=== PATIENT | female | born 1970 | race Caucasian/White ===

== ENCOUNTER 2018-05-02 17:07 | Inpatient (IN) ==
[2018-05-03] MEDS: Heparin Drip 25,000 UNIT/250 ML BAG IV.CONT PRN ×2 (00:45→10:04)
[2018-05-03] MEDS ORDERED: Temazepam 15 MG Capsule PO PRN (01:20)
[2018-05-03] MEDS ORDERED: Acetaminophen 325 MG Tablet PO PRN (01:20)
[2018-05-03] MEDS ORDERED: Bisacodyl 10 MG Supp RECTAL PRN (01:20)
[2018-05-03] MEDS ORDERED: predniSONE 5 MG Tablet PO PRN (03:12)
[2018-05-03] MEDS: Gabapentin 300 MG Capsule PO SCH ×4 (03:46→17:07)
[2018-05-03] MEDS: Baclofen 10 MG Tablet PO SCH ×4 (03:46→17:07)
[2018-05-03 03:55] LABS: INR 1.1 Ratio; Prothrombin Time 10.7 sec (9.8-11.6)
[2018-05-03 04:21] LABS: Activated Partial Thrombo Time 111.2 sec (24.3-30.1)
--- NOTE | 2018-05-03 05:25 | P.HP ---
History of Present Illness Service: [facility] Primary Care Physician: UNKNOWN Chief Complaint: Shortness of breath, syncope, chest pain History of Present Illness: 47-year-old female with a past medical history significant for fibromyalgia, chronic back pain, history of PE/DVT anticoagulated on Xarelto, sick sinus syndrome and rheumatoid arthritis presents to the emergency department for the evaluation of a syncopal episode, chest pain and shortness of breath. The patient reports that she has chronic chest pain but earlier yesterday began to feel acute Luke worsening left sided substernal chest pain that radiated to her left jaw. She reports this pain is now resolved. She states that she then became lightheaded and short of breath and lost consciousness while seated in her car. Her daughter drove her to the emergency department for further evaluation. Initial workup revealed a CTA that was concerning for possible pulmonary embolus despite anticoagulation. The patient was started on a heparin drip and transferred to [facility]. She states her chest pain is resolved. She complains of back and lower extremity pain. She denies any fever /chills. Shortness of breath is improved. No abdominal pain. No nausea/ vomiting/diarrhea. No fever/chills. No lateralizing signs/symptoms. Inpatient Certification: I certify that the inpatient services were ordered in accordance with Medicare regulations governing the order. This includes certification that hospital inpatient services are reasonable and necessary and in the case of services not specified as inpatient-only under 42 CFR 419.22(n), that they are appropriately provided as inpatient services in accordance to with the 2-midnight benchmark under 43 CFR 412.3(e) Estimated Total Length of Stay (Days): 2 Plans for Post Hospital Care: Not yet determined Review of Systems All other systems reviewed negative except as stated in [facility] - History History Provided By: Patient - Medical History Medical History: Medical History (Last Updated 05/02/18 @ 18:29 by Dalia Swanson) Anemia Anxiety Asthma DVT (deep venous thrombosis) Depression Fibromyalgia GERD (gastroesophageal reflux disease) History of cystocele History of rectocele Hx of endometriosis Hx of hysterectomy Pacemaker Pulmonary emboli Rheumatoid arthritis - Surgical History Surgical History: Surgical History (Last Updated 05/02/18 @ 17:37 by Dalia Swanson) Hx of cholecystectomy Hx of lithotripsy Hx of tonsillectomy - Tobacco History Second Hand Smoke Exposure: No Smoking Status: Never smoker - Alcohol History How Often Do You Have a Drink Containing Alcohol: Never - Substance Use History Substance History: No History of Abuse - Travel History Recent Travel in the [place] Within the Last 8 Weeks: No Recent Travel Out of the Country Within the Last 8 Weeks: No - Immunization History Hx Influenza Vaccine This Season: Yes Medications and Allergies Active Medications: Active Medications Acetaminophen (Tylenol) 650 mg PO Q4H PRN PRN Reason: Temp > 100.4 Al Hydroxide/Mg Hydroxide (Milk Of Magnesia Liq) 30 ml PO Q12H PRN PRN Reason: Mild Constipation Alprazolam (Xanax) 1 mg PO BID PRN PRN Reason: Anxiety Baclofen (Lioresal) 10 mg PO TID [facility] Last Admin: 05/03/18 03:46 Dose: 10 mg Bisacodyl (Dulcolax Supp) 10 mg RECTAL DAILY PRN PRN Reason: SEVERE CONSITIPATION Famotidine (Pepcid) 20 mg PO BID [facility] Gabapentin (Neurontin) 300 mg PO TID [facility] Last Admin: 05/03/18 03:46 Dose: 300 mg Hydroxychloroquine Sulfate (Plaquenil) 200 mg PO BID [facility] Heparin Sodium/Dextrose (Heparin/D5w 25,000 U/250 Ml) 25,000 unit in 250 mls @ 18 mls/hr IV.CONT TITRATE PRN; Protocol PRN Reason: Per Protocol Last Admin: 05/03/18 00:45 Dose: 1,800 units/hr, 18 mls/hr Lactulose (Lactulose Liq) 30 ml PO DAILY PRN PRN Reason: SEVERE CONSITIPATION Ondansetron HCl (Zofran Inj) 4 mg IV.PUSH Q6H PRN PRN Reason: NAUSEA OR VOMITING Oxycodone HCl (Roxicodone) 10 mg PO Q6H PRN PRN Reason: PAIN SCALE 1 TO 10 Last Admin: 05/03/18 03:46 Dose: 10 mg Pantoprazole Sodium (Protonix) 40 mg PO DAILY [facility] (Fluticasone- Salmeterol [Advair Hfa] 115/21 0 each INH BID [facility] Prednisone (Deltasone) 5 mg PO DAILY PRN PRN Reason: flair up of RA Senna/Docusate Sodium (Tessie-Colace) 1 tab PO BID [facility] Sennosides (Senokot) 17.2 mg PO Q12H PRN PRN Reason: Moderate Constipation Sertraline HCl (Zoloft) 50 mg PO DAILY [facility] Temazepam (Restoril) 15 mg PO HS PRN PRN Reason: INSOMNIA Allergies Allergy/AdvReac Type Severity Reaction Status Date / Time latex Allergy Unknown Anaphylaxis Verified 05/02/18 17:10 shellfish derived Allergy Unknown Anaphylaxis Verified 05/02/18 17:10 Home Medications Medication Instructions Recorded Confirmed Type alprazolam [Xanax] 1 mg PO BID PRN 05/02/18 05/03/18 History baclofen 10 mg PO TID 05/02/18 05/03/18 History diclofenac sodium [Voltaren] 2 g TOPICAL QID 05/02/18 05/03/18 History epinephrine [EpiPen] 0.3 mg IM Q15M PRN 05/02/18 05/03/18 History famotidine 20 mg PO BID 05/02/18 05/03/18 History fluticasone-salmeterol [Advair HFA] 2 puff INHALATION BID 05/02/18 05/03/18 History gabapentin 300 mg PO TID 05/02/18 05/03/18 History hydroxychloroquine [Plaquenil] 200 mg PO BID 05/02/18 05/03/18 History levalbuterol HCl [Xopenex] 1.25 mg INHALATION Q4-6H PRN 05/02/18 05/03/18 History oxycodone 10 mg PO Q4-6H PRN 05/02/18 05/03/18 History pantoprazole 40 mg PO DAILY 05/02/18 05/03/18 History prednisone 5 mg PO DAILY PRN 05/02/18 05/03/18 History rivaroxaban [Xarelto] 10 mg PO DAILY 05/02/18 05/03/18 History sertraline 50 mg PO DAILY 05/02/18 05/03/18 History Exam Vital signs: Intake & Output 05/02/18 05/02/18 05/03/18 06:59 18:59 06:59 Weight 115.7 kg Other: Weight On Admission 115.7 kg Narrative: Gen.: No acute distress Head: Normocephalic. Atraumatic. EENT: Pupils equal round and reactive to light. Nose without drainage. Airway intact. Throat without injection. Cardiovascular: Regular rate and rhythm. No murmurs, rubs or gallops. Respiratory: Lungs clear to auscultation bilaterally. No wheezes or rhonchi. Abdomen: Soft, nontender, nondistended. No peritoneal signs. Musculoskeletal: No gross deformities. No edema. Skin: No obvious rashes or erythema. Neuro: Sensory and motor grossly intact. Cranial nerves II through XII grossly intact. Psych: Appropriate mood and affect Results - Labs Labs: Laboratory Results - last 24 hr 05/03/18 05/03/18 05/03/18 03:25 03:25 04:36 PT 10.7 INR 1.1 APTT 111.2 H* D 106.0 H* Troponin I Less than 0.02 L Caprini VTE Risk Assessment Caprini VTE Risk Assessment: Moderate/High Risk (score >= 2) Caprini Risk Assessment Model: Point Value = 1 Point Value = 2 Point Value = 3 Point Value = 5 Age 41-60 Minor surgery BMI > 25 kg/m2 Swollen legs Varicose veins or History of unexplained or recurrent spontaneous Oral contraceptives or hormone replacement Sepsis (< 1 month) Serious lung disease, including pneumonia (< 1 month) Abnormal pulmonary function Acute myocardial infarction Congestive heart failure (< 1 month) History of inflammatory bowel disease Medical patient at bed rest Age 61-74 Arthroscopic surgery Major open surgery (> 45 min) Laparoscopic surgery (> 45 min) Malignancy Confined to bed (> 72 hours) Immobilizing plaster cast Central venous access Age >= 75 History of VTE Family history of VTE Factor V Leiden Prothrombin [id number] Lupus anticoagulant Anticardiolipin antibodies Elevated serum homocysteine Heparin-induced thrombocytopenia Other congenital or acquired thrombophilia Stroke (< 1 month) Elective arthroplasty Hip, pelvis, or leg fracture Acute spinal cord injury (< 1 month) Prophylaxis Regimen: Total Risk Factor Score Risk Level Prophylaxis Regimen 0-1 Low Early ambulation 2 Moderate Order ONE of the following: *Sequential Compression Device (SCD) *Heparin 5000 units SQ BID 3-4 Higher Order ONE of the following medications: *Heparin 5000 units SQ TID *Enoxaparin/Lovenox 40 mg SQ daily (WT < 150 kg, CrCl > 30 mL/min) *Enoxaparin/Lovenox 30 mg SQ daily (WT < 150 kg, CrCl > 10-29 mL/min) *Enoxaparin/Lovenox 30 mg SQ BID (WT < 150 kg, CrCl > 30 mL/min) AND/OR *Sequential Compression Device (SCD) 5 or more Highest Order ONE of the following medications: *Heparin 5000 units SQ TID (Preferred with Epidurals) *Enoxaparin/Lovenox 40 mg SQ daily (WT < 150 kg, CrCl > 30 mL/min) *Enoxaparin/Lovenox 30 mg SQ daily (WT < 150 kg, CrCl > 10-29 mL/min) *Enoxaparin/Lovenox 30 mg SQ BID (WT < 150 kg, CrCl > 30 mL/min) AND *Sequential Compression Device (SCD) Assessment and Plan - Plan Assessment/plan: 1. Shortness of breath Chest CTA showed suspected pulmonary embolus seen at the pulmonary artery supplying the anterior aspect of the left lower lobe -patient anticoagulated on Xarelto for previous DVT/PE. Hematology consulted to evaluate possible PE in the setting of anticoagulation. Heparin bolus and drip. 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 Cardiology, pulmonology consulted for further evaluation. Echo pending 2. Chest pain ACS rule out negative Resolved 3. Sick sinus syndrome Status post pacemaker placement 4. Fibromyalgia/chronic back pain/rheumatoid arthritis Continue home pain medications and muscle relaxers Patient has current prescriptions according to [employer] database FEN Regular diet Electrolytes: Monitor and replete as needed Heparin drip
[2018-05-03 07:33] LABS: Hematocrit 41.1 % (35.0-46.0); Hemoglobin 13.3 gm/dL (11.6-15.3); Mean Corpuscular HGB Conc 32.3 % (32.0-36.0); Mean Corpuscular Hemoglobin 23.7 pg (27.0-34.0); Mean Corpuscular Volume 73.4 fL (80.0-100.0); Mean Platelet Volume 10.4 fL (7.0-11.0); Platelet Count 220 th/mm3 (150-450); Red Cell Distribution Width 19.7 % (11.6-17.2); White Blood Count 7.3 th/mm3 (4.0-11.0)
[2018-05-03] MEDS: Famotidine 20 MG Tablet PO SCH ×2 (09:57→21:45)
[2018-05-03] MEDS: Sertraline 50 MG Tablet PO SCH (09:57)
[2018-05-03] MEDS: Senna/Docusate Sodium 8.6/50 MG Tablet PO SCH ×2 (09:57→21:46)
[2018-05-03] MEDS: Hydroxychloroquine 200 MG Tablet PO SCH ×2 (09:57→21:46)
--- NOTE | 2018-05-03 12:00 | P.PNIM ---
Subjective Interval history: in no acute distress. denies sob or chest pain. has some generalized body ache which she relates to her fibromyalgia. Physical Exam Vital signs: Vital Signs 05/03/18 00:00 05/03/18 04:00 05/03/18 06:00 Temperature 97.9 F 97.5 F L Pulse Rate 66 80 Respiratory Rate 18 Blood Pressure 124/63 112/57 L Pulse Oximetry 94 L 97 Intake & Output 05/02/18 05/03/18 05/03/18 18:59 06:59 18:59 Intake Total 120 / 120 250 / 250 Balance 120 / 120 250 / 250 Weight 115.7 kg Intake: IV 250 / 250 Heparin/D5W 25,000 U/250 mL 25, 250 / 250 000 unit In 250 ml @ 1,800 UNITS/HR 18 mls/hr IV.CONT TITRATE PRN Rx#:[id number] Oral 120 / 120 Other: # Voids 2 Weight On Admission 115.7 kg - Constitutional no acute distress - Routine Respiratory Exam Present: CTA bilaterally - Routine Cardiovascular Exam Present: RRR - Routine Abdominal Exam Present: soft - Routine Extremities Exam Comments: no pedal edema. - Routine Neurological Exam Present: alert, oriented X3 Results - Labs CBC & Chem 7: 05/03/18 06:39 Laboratory Results - last 24 hr 05/03/18 05/03/18 05/03/18 03:25 03:25 04:36 WBC RBC Hgb Hct MCV MCH MCHC RDW Plt Count MPV PT 10.7 INR 1.1 APTT 111.2 H* D 106.0 H* Troponin I Less than 0.02 L 05/03/18 05/03/18 06:39 10:55 WBC 7.3 RBC 5.60 H Hgb 13.3 Hct 41.1 MCV 73.4 L MCH 23.7 L MCHC 32.3 RDW 19.7 H Plt Count 220 MPV 10.4 PT INR APTT 70.0 H D Troponin I Assessment and Plan - Plan 1. Shortness of breath Chest CTA showed suspected pulmonary embolus seen at the pulmonary artery supplying the anterior aspect of the left lower lobe -patient anticoagulated on Xarelto for previous DVT/PE. Hematology consulted to evaluate possible PE in the setting of anticoagulation. on Heparin drip. 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 Cardiology, pulmonology consulted for further evaluation. Echo pending 2. Chest pain ACS rule out negative Resolved 3. Sick sinus syndrome Status post pacemaker placement 4. Fibromyalgia/chronic back pain/rheumatoid arthritis Continue home pain medications and muscle relaxers Patient has current prescriptions according to [email or web address] database
--- NOTE | 2018-05-03 16:41 | MB ---
cc: Judith Roper MD DATE: 05/03/2018 HISTORY OF PRESENT ILLNESS: Ms. Pacheco is a 47-year-old white female who has a history of a DVT and pulmonary embolism about 5 years ago and had been followed by a public relations studies director in [place]. She had been on Xarelto and was fine. On the day of admission, she had a near-syncopal episode while driving her car through a takeout window at a food shop. Daughter took over the driving, drove her to the [facility] and she had a CT scan there. That indicated a suspected pulmonary embolism seen in the anterior aspect of the left lower lobe while the rest of the pulmonary circulation appeared normal. No infiltrates or effusions were noted. Because of this, it was suspected that the near-syncopal episode was due to recurrent pulmonary embolism, although she had been on Xarelto, as I said, for several years with no problems. There was no preceding chest pain or shortness of breath. She had no increased swelling in her legs or pain in her legs. She had no immobility, nothing to really predispose her other than the previous pulmonary embolism. She does have a history of neurocardiogenic syncope and in fact several years ago had a pacemaker placed for that along with sick sinus syndrome. She also had an episode of atrial fibrillation in October of this year. Blood pressure since her admission here has been anywhere from 100/50-120/60 and her pulse rate has been in the 60-80 range. She has had no additional symptoms here in the hospital. In light of the concern and suspicion that she may have embolized on Xarelto, she was switched to heparin. Hematology has been consulted to assist in that regard as well. She also has a history of asthma, uses an Advair and occasional albuterol inhaler. Asthma has been very stable. No recent wheezing, cough or congestion. Nothing to suggest a recent URI. ADDITIONAL PAST MEDICAL HISTORY: Fibromyalgia, depression, GERD, history of cystocele and rectocele, endometriosis. She has had a hysterectomy, the pacemaker that I noted and she also has rheumatoid disease with her fibromyalgia and takes hydroxychloroquine with occasional prednisone when she flares. PAST SURGICAL HISTORY: She has had a previous cholecystectomy, lithotripsy and tonsillectomy. SOCIAL HISTORY: , living with her and 2 children in their 20's. They have dogs at home. They were on vacation 2 weeks ago and actually she felt fine. They were in [place]; that is the only recent travel. No significant alcohol use. No illicit drug use. Nonsmoker. REVIEW OF SYSTEMS: Other than that noted above, no recent headache. No chest pain, no progressive dyspnea, no orthopnea or PND. No vomiting. PHYSICAL EXAMINATION: GENERAL: Obese, white female, comfortable at rest. O2 saturation 98-100% on room air. VITAL SIGNS: Afebrile. Blood pressure 112/60, pulse is 70 and regular, respirations 18. HEENT: Sclerae are anicteric. NECK: Neck veins are flat. CHEST: Entirely clear without wheezes or rales. HEART: Regular rhythm. No harsh murmur. No audible S3. ABDOMEN: Obese, but soft. EXTREMITIES: No calf tenderness. No peripheral edema or cyanosis. LABORATORY DATA: White count 7300, hemoglobin 13, platelets normal. DISCUSSION: Ms. Pacheco presents yesterday after what she describes as a near-syncopal episode. Her daughter apparently confirmed that she was "zoned out", although there was no actual loss of consciousness. The CT scan reveals really a minimal abnormality at that left base and without old films it is not possible to say whether that is old or new, but it is a relatively minor defect and a little unlikely to have caused presyncopal symptoms. Cardiology has been consulted in light of the prior history of neurocardiogenic syncope and arrhythmia and I am wondering if that is not more likely to have been the cause of her symptoms. An echocardiogram would help to determine whether or not she has any pulmonary hypertension. I think you could safely return her to the [facility]. Would await the impression of Hematology and some initial cardiology evaluation, but again I think the small defect on the CT scan of her chest seems a little unlikely in and of itself to have caused these symptoms. We will monitor her at least the next 24 hours for recurrent symptoms, see what her echocardiogram reveals. Further diagnostic and/or therapeutic intervention will depend on her ongoing clinical course and the results of these initial studies. R. MD AVNI Ledezma/JANNETTE , 04:10 PM , 04:39 PM
--- NOTE | 2018-05-03 17:05 | ECHRPT ---
Indication: CPHD CONCLUSIONS The left ventricular systolic function is normal with an estimated ejection fraction in the range of 60-65%. Normal left ventricular size. Wall thickness is normal. No regional wall motion abnormalities are present. A pacemaker wire is noted. The pulmonary valve is not well visualized. BP: / HR: Rhythm: Sinus MEASUREMENTS (Male / Female) Normal Values Technical Quality:Excellent 2D ECHO LV Diastolic Diameter PLAX 4.5 cm 4.2 - 5.9 / 3.9 - 5.3 cm LV Systolic Diameter PLAX 2.6 cm IVS Diastolic Thickness 1.1 cm 0.6 - 1.0 / 0.6 - 0.9 cm LVPW Diastolic Thickness 1.1 cm 0.6 - 1.0 / 0.6 - 0.9 cm LV Relative Wall Thickness 0.5 RV Internal Dim ED PLAX 2.5 cm LVOT Diameter 2.1 cm LA Systolic Diameter LX 3.0 cm 3.0 - 4.0 / 2.7 - 3.8 cm LV Ejection Fraction MOD 4C 62.4 % LV Ejection Fraction 4C AL 64.3 % M-MODE Aortic Root Diameter MM 2.1 cm LA Systolic Diameter MM 3.5 cm LA Ao Ratio MM 1.7 AV Cusp Separation MM 2.1 cm DOPPLER AV Peak Velocity 101.5 cm/s AV Peak Gradient 4.1 mmHg LVOT Peak Velocity 93.3 cm/s LVOT Peak Gradient 3.5 mmHg AV Area Cont Eq pk 3.2 cm MV Area PHT 3.8 cm Mitral E Point Velocity 54.8 cm/s Mitral A Point Velocity 47.9 cm/s Mitral E to A Ratio 1.1 LV E' Lateral Velocity 7.7 cm/s Mitral E to LV E' Lateral Ratio 7.1 LV E' Septal Velocity 6.7 cm/s Mitral E to LV E' Septal Ratio 8.1 PV Peak Velocity 78.7 cm/s PV Peak Gradient 2.5 mmHg FINDINGS LEFT VENTRICLE The left ventricular systolic function is normal with an estimated ejection fraction in the range of 60-65%. Normal left ventricular size. Wall thickness is normal. No regional wall motion abnormalities are present. RIGHT VENTRICLE A pacemaker wire is noted. LEFT ATRIUM The left atrial size is normal. RIGHT ATRIUM The right atrial size is normal. ATRIAL SEPTUM Normal atrial septal thickness without atrial level shunting by limited color doppler interrogation. AORTA The aortic root and proximal ascending aorta are normal in size on limited imaging. MITRAL VALVE Structurally normal mitral valve. No mitral valve stenosis or regurgitation. AORTIC VALVE Trileaflet aortic valve. No aortic valve stenosis or regurgitation. TRICUSPID VALVE Structurally normal tricuspid valve. No tricuspid valve stenosis or regurgitation. PULMONARY VALVE The pulmonary valve is not well visualized. VESSELS The inferior vena cava is normal in size. PERICARDIUM No pericardial effusion. Freedom Chavez MD, FACC (Electronically Signed) Final Date:03 May 2018 17:03
--- NOTE | 2018-05-03 19:30 | MB ---
cc: Samria Chilel MD DATE: 05/03/2018 CHIEF COMPLAINT: 1. Chest pain. 2. Syncope. 3. Shortness of breath. HISTORY OF PRESENT ILLNESS: Ms. Pacheco is a 47-year-old lady with a history of fibromyalgia syncope, sick sinus syndrome, mixed connective tissue disease, chronic lower back pain, sciatica, asthma, obesity, who presented to the emergency department with a 2-day history of shortness of breath. She presented to the emergency department on 05/03/2018. She also reported syncopal episode and chest pain. She reports that this chest pain is different from her chronic chest pain. In the Emergency Department, her chest pain had resolved. She had an echocardiogram, which showed left ventricular systolic function normal, with an estimated ejection fraction in the range of 60-65%, normal left ventricular size, wall thickness is normal. No regional wall motion abnormalities are present. Chest CTA with decreased density within the pulmonary artery supplying the anterior aspect of the left lower lobe. The more posterior branch supplying the posterior aspect of the left lower lobe at the same level was clearly more opacified. This suggests there is likely a PE in this pulmonary artery supplying the anterior aspect of the left lower lobe. No other possible pulmonary embolus is seen. The patient reports that she has a history of right lower extremity clot in 2012. She reports that her clot at that time was unprovoked and she has been on Xarelto. She had previously followed with an oncologist in the [place] area. However, her oncologist had recently taken a job in the [place] and she has not seen a bag filler machine operator in some time. She has also been seen by the pulmonary medicine team and cardiology consult is pending, especially given syncope. Laboratory studies with white blood cell count 7.3, hemoglobin 13.3, platelet count is 220,000. She is currently therapeutic on a heparin drip. PAST MEDICAL HISTORY: Fibromyalgia, mixed connective tissue disease, syncope, sick sinus syndrome, chronic lower back pain, sciatica, acid reflux, nephrolithiasis, endometriosis. PAST SURGICAL HISTORY: Cholecystectomy, lithotripsy, tonsillectomy, hysterectomy. FAMILY HISTORY: No family history of clot. Sister with a history of polycythemia. SOCIAL HISTORY: Denies tobacco, alcohol, illegal drug use. She is with a good support system. REVIEW OF SYSTEMS: As above in the HPI. All other review of systems negative. PHYSICAL EXAMINATION: GENERAL: Obese lady in no distress, resting comfortably in bed. HEAD: Normocephalic, atraumatic. EYES: PERRLA, EOMI. No scleral icterus. NECK: Supple with no lymphadenopathy. CARDIOVASCULAR: Regular rate and rhythm. No murmurs. RESPIRATORY: Clear to auscultation bilaterally. ABDOMEN: Soft, nontender, nondistended. Bowel sounds present. Protuberant abdomen. EXTREMITIES: With no edema. NEUROLOGIC: Grossly nonfocal. PSYCHIATRIC: Appropriate mood and affect. ASSESSMENT AND PLAN: Possible pulmonary embolus seen on CTA. No prior comparisons available. We will review imaging studies with radiologist. We will also check D-dimer and ultrasound of the leg. If D-dimer is low, ultrasound of the leg is negative and radiologist review, probable area of clot is unimpressive. We will discuss risks versus benefits of returning patient to Xarelto. If there is evidence of having an active clot, would plan to switch the patient to warfarin therapy. The patient reports that she had been taking the Xarelto scheduled on time with food every day. She reports that she had a back procedure approximately 3 months ago and was off Xarelto for approximately 3 days and then she resumed. The patient also has a history of active rheumatologic disease for which she takes prednisone and Plaquenil. Do feel that it would be fair to work her up for an underlying antiphospholipid antibody syndrome and will order these tests. We will also check hepatic function panel. Inpatient hematology service will continue to follow. MD FLORES Gerard/LAURA , 06:47 PM , 07:28 PM MARYAM
--- NOTE | 2018-05-03 22:20 | MB ---
cc: Wojciech Ruiz Vincent G DO DATE: 05/03/2018 REASON FOR CONSULTATION: Chest pain, shortness of breath, syncope. HISTORY OF PRESENT ILLNESS: Kylah Yao is a pleasant 47-year-old female who presented to [facility] due to a syncopal episode, chest pain and shortness of breath. The patient is known to see Dr. Tolentino in [place], [place]. She states that she was driving through a drive-through and had to stop and apparently had the syncopal episode in the car. It is unsure at this time if she actually lost consciousness. Her daughter drove her to [facility] where she had a CAT scan and there was concern for a suspected pulmonary embolus and so she was transferred to [facility] and started on a heparin drip. She also states that she has chronic chest pain due to compressions done at the time of her pacemaker placement. She feels that these are muscle spasms and she frequently gets these. Chest pain was somewhat different at the time and she mentioned some pain along the jaw area, although she is unsure if this is actually associated with it. She also mentioned that she feels that she is short of breath chronically. She does have a history of multiple syncopal episodes, which she states has gotten somewhat better. She was told by Dr. Tolentino that during these episodes they were not felt to be cardiac, but more likely neurologic. In seeing her, she is currently stable with no chest pain, shortness of breath or palpitations. PAST MEDICAL HISTORY: 1. Syncopal episodes. 2. Anemia. 3. Anxiety. 4. Asthma. 5. Deep venous thrombosis. 6. Depression. 7. Fibromyalgia. 8. Gastroesophageal reflux disease. 9. Pulmonary embolus. 10. Rheumatoid arthritis. 11. Sick sinus syndrome. 12. Chronic low back pain. PAST SURGICAL HISTORY: 1. [facility] pacemaker placed due to her syncopal episodes as well as sick sinus syndrome. 2. Cholecystectomy. 3. Lithotripsy. 4. Tonsillectomy. 5. Hysterectomy. ALLERGIES: 1. LATEX. 2. SHELLFISH. MEDICATIONS: 1. Xarelto 10 mg daily. 2. Gabapentin 300 mg t.i.d. 3. Sertraline 50 mg daily. 4. Oxycodone 10 mg every 4-6 hours as needed for pain. 5. Protonix 40 mg daily. 6. Prednisone 5 mg daily as needed. 7. Xopenex 1.25 mg every 4-6 hours as needed. 8. Advair 2 puffs b.i.d. 9. Baclofen 10 mg t.i.d. 10. Pepcid 20 mg b.i.d. 11. Voltaren gel q.i.d. 12. Plaquenil 200 mg b.i.d. 13. Xanax 1 mg b.i.d. as needed for anxiety. FAMILY HISTORY: Denies premature coronary artery disease or sudden cardiac within the family. SOCIAL HISTORY: Denies tobacco, alcohol or drug abuse. REVIEW OF SYSTEMS: Fourteen systems were reviewed including osteopathic, positives and negatives as above, otherwise negative. PHYSICAL EXAMINATION: VITAL SIGNS: Temperature 97.6, heart rate 64, blood pressure 103/51, respirations 20, pulse oximetry 100% on room air. GENERAL: The patient appears well, in no acute distress. Alert, awake and oriented x3. Extraocular movements intact. Mucous membranes moist. NECK: Supple. No JVD at 45 degrees. No carotid bruits heard bilaterally. Carotid upstroke is brisk in nature. HEART: Regular rate and rhythm. Positive first and second heart sounds with no noted murmurs, gallops or rubs. LUNGS: Clear to auscultation bilaterally. No wheezes, rales or rhonchi. ABDOMEN: Soft, nontender, nondistended. No organomegaly noted. EXTREMITIES: Show no clubbing, cyanosis or edema. Femoral and distal pulses are intact bilaterally. SKIN: Warm, dry and intact. OSTEOPATHIC: Mild lordosis. No kyphoscoliosis or paraspinal tender points. LABORATORY DATA: Hemoglobin 13.3, hematocrit 41.1, platelets 220. Potassium 3.9, BUN 13, creatinine 1.50. Troponin less than 0.02. BNP 13. CARDIOLOGY STUDIES: Electrocardiogram (05/02/2018 at 1719): Sinus rhythm with no acute ST-T wave changes. IMPRESSION: 1. Syncopal episode, although difficult to determine if she lost consciousness as the patient is an overall poor historian. 2. History of neurocardiogenic syncope. 3. Chest pain, atypical for coronary insufficiency. 4. Shortness of breath, which she states is chronic in nature. 5. Suspected pulmonary embolus on CTA 6. Sick sinus syndrome, status post pacemaker placement. 6. Fibromyalgia. 7. Chronic back pain. 8. Rheumatoid arthritis. RECOMMENDATIONS: 1. Ms. Pacheco presented with chest pain, shortness of breath and no syncopal episode. All of these are relatively chronic for her, although her symptoms are somewhat different than her baseline. 2. There is concern for a possible pulmonary embolus and she is being evaluated from Pulmonology as well as Hematology for this. Overall, if she did have a pulmonary embolus, this definitely could be a cause for her triad of symptoms. 3. We will defer anticoagulation further to hematology, as she was currently on Xarelto for previous deep venous thrombosis and pulmonary embolism. 4. We will attempt to call her qa lead in [place], [place] to discuss his previous workup of her. I have asked [facility] to interrogate her pacemaker due to the syncopal episode and no arrhythmias were noted. 5. We will check a 2-Dimensional echocardiogram to look at her overall left ventricular function, cardiac structure and possible valvulopathies. 6. Further recommendations will be made based on the hospital course. Thank you for allowing me to see Kylah Pacheco. If there are any questions, please do not hesitate to call. DO ALEXANDRIA CaponeP/ , 09:36 PM , 10:19 PM
[2018-05-04] MEDS: Heparin Drip 25,000 UNIT/250 ML BAG IV.CONT PRN ×2 (03:53→21:42)
[2018-05-04] MEDS: Famotidine 20 MG Tablet PO SCH ×2 (08:48→21:46)
[2018-05-04] MEDS: Hydroxychloroquine 200 MG Tablet PO SCH ×2 (08:48→21:46)
[2018-05-04] MEDS: Gabapentin 300 MG Capsule PO SCH ×3 (08:48→18:09)
[2018-05-04] MEDS: Sertraline 50 MG Tablet PO SCH (08:48)
[2018-05-04] MEDS: Baclofen 10 MG Tablet PO SCH ×3 (08:48→18:09)
[2018-05-04] MEDS: Senna/Docusate Sodium 8.6/50 MG Tablet PO SCH ×2 (08:48→21:46)
--- NOTE | 2018-05-04 08:51 | US ---
EXAM DATE: 05/04/2018 8:35 AM EDT AGE/SEX: 47 years / Female INDICATIONS: Bilateral leg swelling. CLINICAL DATA: This is the patient's initial encounter. Patient reports that signs and symptoms have been present for 1 week and indicates a pain score of 10/10. MEDICAL/SURGICAL HISTORY: Gastroesophageal reflux disease. Rheumatoid arthritis. Anemia. Anxie ty. Asthma. Depression. Deep vein thrombosis. Fibromyalgia. Cystocele. Rectocele. Endometriosis. Pulm onary embolism. Hysterectomy. Pacemaker. Cholecystectomy. Lithotripsy. Tonsillectomy. COMPARISON: No prior exams available for comparison. TECHNIQUE: Venous ultrasound of both lower extremities was performed from the inguinal ligament to t he proximal calf. Real-time, color Doppler and spectral tracing, compression and augmentation techni ques were used. FINDINGS: Right Leg: Normal compression of the deep venous system from the inguinal region to the proximal braden f. No echogenic clot is seen. Normal response of the venous system to augmentation and respiration. Left Leg: Normal compression of the deep venous system from the inguinal region to the proximal calf . No echogenic clot is seen. Normal response of the venous system to augmentation and respiration. Other: None. CONCLUSION: The study is negative for bilateral lower extremity deep venous thrombosis. Electronically signed by: Chester Hess MD 05/04/2018 8:50 AM EDT
[2018-05-04 09:20] LABS: Calcium 9.4 mg/dL (8.5-10.1); Carbon Dioxide 24.4 meq/L (21.0-32.0); Potassium 4.1 meq/L (3.5-5.1)
[2018-05-04 09:32] LABS: Baso % (Auto) 0.3 % (0.0-2.0); Eos # (Auto) 0.2 th/mm3 (0.0-0.4); Eos % (Auto) 2.6 % (0.0-4.0); Hematocrit 40.1 % (35.0-46.0); Hemoglobin 12.8 gm/dL (11.6-15.3); Lymph # (Auto) 2.4 th/mm3 (1.0-4.8); Lymph % (Auto) 39.2 % (9.0-44.0); Mean Corpuscular HGB Conc 31.9 % (32.0-36.0); Mean Corpuscular Hemoglobin 23.3 pg (27.0-34.0); Mean Corpuscular Volume 72.9 fL (80.0-100.0); Mean Platelet Volume 10.3 fL (7.0-11.0); Mono # (Auto) 0.4 th/mm3 (0.0-0.9); Mono % (Auto) 7.1 % (0.0-8.0); Neut # (Auto) 3.1 th/mm3 (1.8-7.7); Neut % (Auto) 50.8 % (16.0-70.0); Platelet Count 205 th/mm3 (150-450); Red Cell Distribution Width 20.1 % (11.6-17.2)
--- NOTE | 2018-05-04 12:53 | P.PNIM ---
Subjective Interval history: in no acute distress. has some on and off muscle spasms. no sob or chest pain. otherwise no other complaints. Physical Exam Vital signs: Vital Signs 05/03/18 16:00 05/03/18 20:00 05/03/18 22:20 Temperature 97.1 F L 96.0 F L Pulse Rate 56 L 60 Respiratory Rate 20 14 17 Blood Pressure 99/54 L 118/69 Pulse Oximetry 98 96 05/04/18 00:00 05/04/18 04:00 05/04/18 08:00 Temperature 97.8 F 98.8 F 97.8 F Pulse Rate 95 H 58 L 85 Respiratory Rate 16 14 20 Blood Pressure 120/65 109/56 L 104/60 Pulse Oximetry 95 98 96 Intake & Output 05/03/18 05/04/18 05/04/18 18:59 06:59 18:59 Intake Total 250 / 250 250 / 250 Balance 250 / 250 250 / 250 Intake: IV 250 / 250 250 / 250 Heparin/D5W 25,000 U/250 mL 25, 250 / 250 250 / 250 000 unit In 250 ml @ 1,800 UNITS/HR 18 mls/hr IV.CONT TITRATE PRN Rx#:[id number] - Constitutional no acute distress - Routine Respiratory Exam Present: CTA bilaterally - Routine Cardiovascular Exam Present: RRR - Routine Abdominal Exam Present: soft - Routine Extremities Exam Comments: no pedal edema. - Routine Neurological Exam Present: alert, oriented X3 Results - Labs CBC & Chem 7: 05/04/18 08:16 05/04/18 08:16 Laboratory Results - last 24 hr 05/03/18 05/03/18 05/03/18 16:35 16:35 22:27 WBC RBC Hgb Hct MCV MCH MCHC RDW Plt Count MPV Neut % (Auto) Lymph % (Auto) [place] % (Auto) Eos % (Auto) Baso % (Auto) Neut # (Auto) Lymph # (Auto) [place] # (Auto) Eos # (Auto) Baso # (Auto) WBC Differential Differential Comment Hematology Comments APTT 63.9 H 72.5 H D-Dimer Quant (PE/DVT) 0.58 H Sodium Potassium Chloride Carbon Dioxide Anion Gap BUN Creatinine Estimated GFR Random Glucose Calcium 05/04/18 05/04/18 05/04/18 08:16 08:16 08:16 WBC 6.0 RBC 5.50 H Hgb 12.8 Hct 40.1 MCV 72.9 L MCH 23.3 L MCHC 31.9 L RDW 20.1 H Plt Count 205 MPV 10.3 Neut % (Auto) 50.8 Lymph % (Auto) 39.2 [place] % (Auto) 7.1 Eos % (Auto) 2.6 Baso % (Auto) 0.3 Neut # (Auto) 3.1 Lymph # (Auto) 2.4 [place] # (Auto) 0.4 Eos # (Auto) 0.2 Baso # (Auto) 0.0 WBC Differential . Differential Comment Auto diff final Hematology Comments APTT 73.0 H D-Dimer Quant (PE/DVT) Sodium 139 Potassium 4.1 Chloride 105 Carbon Dioxide 24.4 Anion Gap 10 BUN 13 Creatinine 0.93 Estimated GFR 65 L Random Glucose 103 Calcium 9.4 - Imaging Impressions Venous Doppler Study 05/04/18 00:00 CONCLUSION: The study is negative for bilateral lower extremity deep venous thrombosis. Assessment and Plan - Plan 1. Shortness of breath Chest CTA showed suspected pulmonary embolus seen at the pulmonary artery supplying the anterior aspect of the left lower lobe -patient anticoagulated on Xarelto for previous DVT/PE. 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 pulmonary and hematology consults appreciated. 2. Chest pain Resolved cardiology consult appreciated. for stress test tomorrow. 3. Sick sinus syndrome Status post pacemaker placement 4. Fibromyalgia/chronic back pain/rheumatoid arthritis Continue home pain medications and muscle relaxers Patient has current prescriptions according to [email or web address] database Discharge Planning: when cleared by consultants.
--- NOTE | 2018-05-04 15:22 | MD ---
cc: Judith Roper MD DATE OF DISCHARGE: HISTORY OF PRESENT ILLNESS: Ms. Pacheco is a 47-year-old white female who had a presyncopal episode and presented to the emergency room in [place]. She had a CT scan there, which revealed a small defect in the left base and she was admitted for pulmonary embolism. 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 Pulmonary hypertension was suspected as the cause of the presyncopal symptoms, so an echocardiogram was performed, but it is essentially normal. There is certainly no marked elevation in pulmonary artery pressure. The CT scan also shows very minimal deficit at the left base and she did have pulmonary embolism 5 years ago. This could certainly be a residual of that. There really is no way for us to be certain it is a new embolism. Her legs were negative on venous Doppler and she had no preceding symptoms. Also, I do not think this would explain the presyncopal symptom complex that she presented with. She has been stable here in the hospital. Cardiology is seeing her and plans on an additional cardiovascular evaluation, because she does have a history of neurocardiogenic syncope and has a pacemaker. Today, she is afebrile. Her pulse is 80, respirations are 18, O2 saturation on room air is 98% and her blood pressure is 109/56. Lungs are clear. Heart is regular. She has no edema. I have explained to Mrs. Pacheco, and we reviewed this when her was here 2 days ago, that I do not think there is any good clinical evidence that she has had a recurrent embolism. 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 However, I have suggested that once she is stabilized and discharged, she should take a disk from the scan in [place] to her pulmonary physician who has been following her for several years in [place] and see if they can get a comparison with the old scans. Of course, we will need to continue Xarelto. She understands this and will follow through on that. I spoke to the primary care physician, hospitalist today. They are going to continue some cardiovascular workup. There is really nothing left to do from a pulmonary standpoint at this point other than for her to be certain she follows up in [place] after discharge. R. MD AVNI Ledezma/GARRICK , 03:01 PM , 03:17 PM
--- NOTE | 2018-05-04 17:59 | P.PNONC ---
Subjective Interval history: Resting comfortably in bed. No VTE in BLE. DD slightly elevated at 0.58. She has been seen by the cardiology service with plans for cardiology procedure tomorrow. at bedside. Objective Vital Signs/Intake & Output: Vital Signs 05/03/18 20:00 05/03/18 22:20 05/04/18 00:00 Temperature 96.0 F L 97.8 F Pulse Rate 60 95 H Respiratory Rate 14 17 16 Blood Pressure 118/69 120/65 Pulse Oximetry 96 95 05/04/18 04:00 05/04/18 08:00 05/04/18 12:00 Temperature 98.8 F 97.8 F 97.5 F L Pulse Rate 58 L 85 59 L Respiratory Rate 14 20 20 Blood Pressure 109/56 L 104/60 91/59 L Pulse Oximetry 98 96 100 05/04/18 16:00 Temperature 97.2 F L Pulse Rate 59 L Respiratory Rate 20 Blood Pressure 122/77 Pulse Oximetry 100 Intake & Output 05/03/18 05/04/18 05/04/18 18:59 06:59 18:59 Intake Total 250 / 250 250 / 250 Balance 250 / 250 250 / 250 Intake: IV 250 / 250 250 / 250 Heparin/D5W 25,000 U/250 mL 25, 250 / 250 250 / 250 000 unit In 250 ml @ 1,800 UNITS/HR 18 mls/hr IV.CONT TITRATE PRN Rx#:[id number] Result Diagrams: 05/04/18 08:16 05/04/18 08:16 Laboratory Results: Laboratory Results - last 24 hr 05/03/18 05/03/18 05/04/18 16:35 22:27 08:16 WBC 6.0 RBC 5.50 H Hgb 12.8 Hct 40.1 MCV 72.9 L MCH 23.3 L MCHC 31.9 L RDW 20.1 H Plt Count 205 MPV 10.3 Neut % (Auto) 50.8 Lymph % (Auto) 39.2 [place] % (Auto) 7.1 Eos % (Auto) 2.6 Baso % (Auto) 0.3 Neut # (Auto) 3.1 Lymph # (Auto) 2.4 [place] # (Auto) 0.4 Eos # (Auto) 0.2 Baso # (Auto) 0.0 WBC Differential . Differential Comment Auto diff final Hematology Comments APTT 72.5 H D-Dimer Quant (PE/DVT) 0.58 H Sodium Potassium Chloride Carbon Dioxide Anion Gap BUN Creatinine Estimated GFR Random Glucose Calcium 05/04/18 05/04/18 08:16 08:16 WBC RBC Hgb Hct MCV MCH MCHC RDW Plt Count MPV Neut % (Auto) Lymph % (Auto) [place] % (Auto) Eos % (Auto) Baso % (Auto) Neut # (Auto) Lymph # (Auto) [place] # (Auto) Eos # (Auto) Baso # (Auto) WBC Differential Differential Comment Hematology Comments APTT 73.0 H D-Dimer Quant (PE/DVT) Sodium 139 Potassium 4.1 Chloride 105 Carbon Dioxide 24.4 Anion Gap 10 BUN 13 Creatinine 0.93 Estimated GFR 65 L Random Glucose 103 Calcium 9.4 Imaging Studies: Impressions Venous Doppler Study 05/04/18 00:00 CONCLUSION: The study is negative for bilateral lower extremity deep venous thrombosis. Medications: Active Medications Generic Name Dose Route Start Last Admin Trade Name Freq PRN Reason Stop Dose Admin Baclofen 10 mg 05/03/18 03:15 05/04/18 12:04 Lioresal PO 10 mg TID SARAH Administration Famotidine 20 mg 05/03/18 09:00 05/04/18 08:48 Pepcid PO 20 mg BID SARAH Administration Gabapentin 300 mg 05/03/18 03:13 05/04/18 12:04 Neurontin PO 300 mg TID SARAH Administration Hydroxychloroquine Sulfate 200 mg 05/03/18 09:00 05/04/18 08:48 Plaquenil PO 200 mg BID SARAH Administration Heparin Sodium/Dextrose 25,000 unit in 250 mls @ 18 mls/hr 05/03/18 03:14 12:02 Heparin/D5w 25,000 U/250 Ml IV.CONT 1,500 units/hr TITRATE PRN 15 mls/hr Per Protocol Titration Protocol 1,800 UNITS/HR Ondansetron HCl 4 mg 05/03/18 01:20 05/04/18 09:50 Zofran Inj IV.PUSH 4 mg Q6H PRN Administration NAUSEA OR VOMITING Oxycodone HCl 10 mg 05/03/18 03:28 05/04/18 09:50 Roxicodone PO 10 mg Q6H PRN Administration PAIN SCALE 1 TO 10 Pantoprazole Sodium 40 mg 05/03/18 09:00 05/04/18 08:48 Protonix PO 40 mg DAILY SARAH Administration Senna/Docusate Sodium 1 tab 05/03/18 09:00 05/04/18 08:48 Tessie-Colace PO 1 tab BID SARAH Administration Sertraline HCl 50 mg 05/03/18 09:00 05/04/18 08:48 Zoloft PO 50 mg DAILY SARAH Administration Objective Remarks: GENERAL: Well-nourished, well-developed patient. SKIN: Warm and dry. HEAD: Normocephalic. EYES: No scleral icterus. No injection or drainage. LYMPHATIC: No adenopathy. RESPIRATORY: No accessory muscle use. GASTROINTESTINAL: protuberant abdomen EXTREMITIES: No edema. MUSCULOSKELETAL: Adequate muscle tone. NEUROLOGICAL: No obvious focal deficit. Awake, alert, and oriented x3. PSYCHIATRIC: Appropriate mood and affect; insight and judgment normal. Assessment/Plan - Plan 1. CTA with suspected PE while patient is fully anticoagulated on Xarelto. Long discussion with patient and regarding past VTE, small artifact on imaging study, presenting symptoms to hospital. Unclear if this is truly a new VTE as we do not have past imaging studies. She reports that her symptoms are consistent with her past symptoms of neurocardiogenic syncope. Discussed treatment of recurrent VTE with patient and to include changing to alternate anticoagulation in her setting VKA vs injectable. Patient declines warfarin therapy as reports that she does not feel that she would be able to be compliant with this regimen. Discussed resumption of Xarelto. Patient is amenable, she expressed understanding of above. Will have close follow up in hematology clinic. WIll obtain outside records.
--- NOTE | 2018-05-04 18:36 | P.PNCA ---
Subjective Interval history: Doing well Has typical muscle spasms Physical Exam Vital signs: Vital Signs 05/03/18 20:00 05/03/18 22:20 05/04/18 00:00 Temperature 96.0 F L 97.8 F Pulse Rate 60 95 H Respiratory Rate 14 17 16 Blood Pressure 118/69 120/65 Pulse Oximetry 96 95 05/04/18 04:00 05/04/18 08:00 05/04/18 12:00 Temperature 98.8 F 97.8 F 97.5 F L Pulse Rate 58 L 85 59 L Respiratory Rate 14 20 20 Blood Pressure 109/56 L 104/60 91/59 L Pulse Oximetry 98 96 100 05/04/18 16:00 Temperature 97.2 F L Pulse Rate 59 L Respiratory Rate 20 Blood Pressure 122/77 Pulse Oximetry 100 Intake & Output 05/03/18 05/04/18 05/04/18 18:59 06:59 18:59 Intake Total 250 / 250 250 / 250 Balance 250 / 250 250 / 250 Intake: IV 250 / 250 250 / 250 Heparin/D5W 25,000 U/250 mL 25, 250 / 250 250 / 250 000 unit In 250 ml @ 1,800 UNITS/HR 18 mls/hr IV.CONT TITRATE PRN Rx#:[id number] Narrative: GENERAL: NAD, AAOx3 SKIN: Warm and dry. HEAD: Atraumatic. Normocephalic. EYES: Pupils equal and round. No scleral icterus. No injection or drainage. ENT: No nasal bleeding or discharge. Mucous membranes pink and moist. NECK: Trachea midline. No JVD. CARDIOVASCULAR: Regular rate and rhythm. RESPIRATORY: No accessory muscle use. Clear to auscultation. Breath sounds equal bilaterally. GASTROINTESTINAL: Abdomen soft, non-tender, nondistended. Hepatic and splenic margins not palpable. MUSCULOSKELETAL: Extremities without clubbing, cyanosis, or edema. No obvious deformities. NEUROLOGICAL: Awake and alert. No obvious cranial nerve deficits. Motor grossly within normal limits. Five out of 5 muscle strength in the arms and legs. Normal speech. PSYCHIATRIC: Appropriate mood and affect; insight and judgment normal. Assessment and Plan - Assessment (1) Syncope and collapse Code(s): R55 - Syncope and collapse Status: Acute (2) Chest pain Code(s): R07.9 - Chest pain, unspecified Status: Acute (3) SOB (shortness of breath) Code(s): R06.02 - Shortness of breath Status: Acute - Plan 1) Syncope [place] to be due to pulmonary embolism, but now unsure as possible artifact on CT History of multiple episodes of syncope felt to be neurologic 2) Chest pain Has a long history of chest pain, but this was different Will plan on stress test tomorrow morning NPO after midnight If positive will need cardiac cath on Monday 3) SOB Chronic 4) Hx of PE Con't on Xarelto Will need to be held if plan for cardiac catheterization 5) 05/04 Discussed with her artist color separation Dr. Tolentino in [place] for further information Long history of syncope, felt to be neurologic, no cardiovascular reason found Chest pain, did not have stress testing in the recent past 6) PPM interrogation showing no cause for syncope
[2018-05-05 05:21] LABS: Hematocrit 39.2 % (35.0-46.0); Hemoglobin 12.6 gm/dL (11.6-15.3); Mean Corpuscular Hemoglobin 23.7 pg (27.0-34.0); Platelet Count 212 th/mm3 (150-450); Red Cell Distribution Width 20.3 % (11.6-17.2); White Blood Count 5.9 th/mm3 (4.0-11.0)
[2018-05-05] MEDS: Sertraline 50 MG Tablet PO SCH (09:23)
[2018-05-05] MEDS: Gabapentin 300 MG Capsule PO SCH ×3 (09:23→17:37)
[2018-05-05] MEDS: Famotidine 20 MG Tablet PO SCH ×2 (09:24→21:09)
[2018-05-05] MEDS: Senna/Docusate Sodium 8.6/50 MG Tablet PO SCH ×2 (09:24→21:11)
[2018-05-05] MEDS: Hydroxychloroquine 200 MG Tablet PO SCH ×2 (09:24→21:09)
[2018-05-05] MEDS: Baclofen 10 MG Tablet PO SCH ×3 (09:24→17:37)
[2018-05-05] MEDS ORDERED: Aluminum/Magnesium/Simethacone Susp 30 ML UDC PO ONE (12:12)
[2018-05-05] MEDS: Heparin Drip 25,000 UNIT/250 ML BAG IV.CONT PRN (12:13)
[2018-05-05] MEDS ORDERED: Regadenoson Inj 0.4 MG/5 ML Syringe IV.PUSH ONE (14:54)
--- NOTE | 2018-05-05 15:26 | P.PNIM ---
Subjective Interval history: Currently patient is on heparin drip. She will be having a stress test today. If stress test is normal cardiac etiology will be less likely. A pulmonary embolism could be present but based on the presenting symptoms this does not match. The patient is that the primary etiology is related to this patient's underlying autoimmune condition. It appears she may have an exacerbation of her autoimmunity. Today she complains of piriformis syndrome bilaterally. Physical Exam Vital signs: Vital Signs 05/04/18 16:00 05/04/18 18:42 05/04/18 20:00 Temperature 97.2 F L 98.3 F Pulse Rate 59 L 70 Respiratory Rate 20 16 17 Blood Pressure 122/77 115/59 L Pulse Oximetry 100 96 05/04/18 22:15 05/05/18 04:00 05/05/18 08:00 Temperature 98.0 F 98.1 F 97.5 F L Pulse Rate 68 66 61 Respiratory Rate 14 14 16 Blood Pressure 120/57 L 110/60 100/56 L Pulse Oximetry 95 95 95 05/05/18 09:30 05/05/18 12:00 Temperature 97.8 F Pulse Rate 61 Respiratory Rate 16 16 Blood Pressure 113/72 Pulse Oximetry 96 Intake & Output 05/04/18 05/05/18 05/05/18 18:59 06:59 18:59 Intake Total 250 / 250 250 / 250 Balance 250 / 250 250 / 250 Intake: IV 250 / 250 250 / 250 Heparin/D5W 25,000 U/250 mL 25, 250 / 250 250 / 250 000 unit In 250 ml @ 1,800 UNITS/HR 18 mls/hr IV.CONT TITRATE PRN Rx#:[id number] Other: Date of Last Bowel Movement 05/04/18 05/04/18 Narrative: GENERAL: NAD, A&Ox3 HEAD: Normocephalic. NECK: Supple, trachea midline. No lymphadenopathy. EYES: No scleral icterus. No injection or drainage. CARDIOVASCULAR: Regular rate and rhythm without murmurs, gallops, or rubs. RESPIRATORY: Breath sounds equal bilaterally. No accessory muscle use. GASTROINTESTINAL: Abdomen soft, non-tender, nondistended. MUSCULOSKELETAL: No cyanosis, or edema. SKIN: Warm and dry. NEURO: No focal neurological deficits. Results - Labs CBC & Chem 7: 05/05/18 04:55 07/13/18 08:16 Laboratory Results - last 24 hr 05/05/18 05/05/18 04:55 04:55 WBC 5.9 RBC 5.30 Hgb 12.6 Hct 39.2 MCV 74.0 L MCH 23.7 L MCHC 32.0 RDW 20.3 H Plt Count 212 MPV 10.0 APTT 70.6 H Assessment and Plan - Plan 47-year-old female admitted secondary to syncope Shortness of breath Plan to transition back to Xarelto I do not feel that this patient CT findings show acute changes History does not correlate with typical symptoms of an acute PE Chest pain Stress test pending Cardiology following Chest pain has improved History of sick sinus syndrome Status post pacemaker placement Autoimmunity NOS Autoimmune exacerbation fibromyalgia chronic back pain rheumatoid arthritis Continue home pain medications and muscle relaxers Increased steroid dosing will be considered based on findings on stress test Patient may be discharged on a steroid taper DVT Prophylaxis Heparin Drip
--- NOTE | 2018-05-05 16:40 | NM ---
EXAM DATE: 05/05/2018 4:30 PM EDT AGE/SEX: 47 years / Female INDICATIONS:Angina. . Chest pain. CLINICAL DATA: This is the patient's initial encounter. Patient reports that signs and symptoms have been present for 1 day and indicates a pain score of 4/10. MEDICAL/SURGICAL HISTORY: Hypertension. Asthma. Pacemaker. Hysterectomy. Cholecystectomy. COMPARISON: No prior exams available for comparison. DOSE: 10.1 mCi Tc 99m Myoview at rest 30 mCi [id number] at stress 0.4 mg Lexiscan STRESS SYMPTOMS: Short of breath. EJECTION FRACTION: 70 % TECHNIQUE: The patient underwent pharmacologic stress with infusion of prescribed dose. Continuous ECG tracing was monitored during stress. Gated SPECT imaging was performed after stress and conventi onal SPECT imaging was performed at rest. The examination was performed on a SPECT/CT scanner, both attenuation and non-corrected datasets were reviewed. FINDINGS: Distribution: The maximum perfused segment at stress is in the septal wall. Perfusion Study: The pattern of perfusion at stress is within normal limits. Gated Study: There are intact wall motion and wall thickening without hypokinetic or dyskinetic segm ents. The ejection fraction is calculated at 70%. RISK CATEGORY: Low (<1% Annual Motality Rate) CONCLUSION: Unremarkable myocardial perfusion scan. Electronically signed by: Vlad Joshi MD 05/05/2018 4:39 PM EDT
[2018-05-06] MEDS: Heparin Drip 25,000 UNIT/250 ML BAG IV.CONT PRN (06:04)
[2018-05-06] MEDS ORDERED: predniSONE 20 MG Tablet PO SCH (09:00)
[2018-05-06] MEDS: Hydroxychloroquine 200 MG Tablet PO SCH (09:33)
[2018-05-06] MEDS: Famotidine 20 MG Tablet PO SCH (09:33)
[2018-05-06] MEDS: Sertraline 50 MG Tablet PO SCH (09:33)
[2018-05-06] MEDS: Gabapentin 300 MG Capsule PO SCH (09:33)
[2018-05-06] MEDS: Baclofen 10 MG Tablet PO SCH (09:33)
[2018-05-06] MEDS: Senna/Docusate Sodium 8.6/50 MG Tablet PO SCH (09:34)
--- NOTE | 2018-05-06 11:08 | P.DS ---
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 The patient reports that she has chronic chest pain but earlier yesterday began to feel acute Luke worsening left sided substernal chest pain that radiated to her left jaw. She reports this pain is now resolved. She states that she then became lightheaded and short of breath and lost consciousness while seated in her car. Her daughter drove her to the emergency department for further evaluation. Initial workup revealed a CTA that was concerning for possible pulmonary embolus despite anticoagulation. The patient was started on a heparin drip and transferred to [facility]. She states her chest pain is resolved. She complains of back and lower extremity pain. She denies any fever /chills. Shortness of breath is improved. No abdominal pain. No nausea/ vomiting/diarrhea. No fever/chills. No lateralizing signs/symptoms. DS: Medications - Discharge Medications Prescriptions: furosemide [Lasix] 20 mg PO DAILY PRN #15 tab PRN Reason: Fluid Retention prednisone 20 mg PO DIRECTED #7 tab DS: Summary Hospital Course: Mrs. Pacheco is a 47-year-old female. She was admitted secondary to syncope with upper chest pain and changes in vision. She had an extensive workup including evaluation for pulmonary embolism. She has a past history of pulmonary embolism. She also had a cardiac evaluation including a stress test. No exams were conclusive for an etiology. There was some suspicion of a possible pulmonary embolus except her symptoms did not match this, the location is at the same site as a previous pulmonary embolism, and the finding was not definitive. Etiology is likely related to her underlying autoimmune condition and may represent an autoimmune exacerbation. She is recommended to return to her baseline Xarelto and is placed on a steroid taper. She is medically stable and cleared for discharge home today. - Time Spent with Patient Total time spent providing and/or coordinating discharge services: - Quality: VTE Deep Vein Thrombosis/Pulmonary Embolism Present on Admission: No Exam Vital signs: Vital Signs 05/05/18 12:00 05/05/18 16:00 05/05/18 20:00 Temperature 97.8 F 97.1 F L 98.1 F Pulse Rate 61 58 L 69 Respiratory Rate 16 16 21 Blood Pressure 113/72 111/69 125/76 Pulse Oximetry 96 96 96 05/06/18 00:00 05/06/18 01:20 05/06/18 04:00 Temperature 97.6 F 97.2 F L Pulse Rate 61 65 Respiratory Rate 21 20 Blood Pressure 183/77 H 131/62 110/75 Pulse Oximetry 100 99 05/06/18 09:36 Temperature Pulse Rate Respiratory Rate 20 Blood Pressure Pulse Oximetry Intake & Output 05/05/18 05/06/18 05/06/18 18:59 06:59 18:59 Intake Total 250 / 250 890 / 890 Balance 250 / 250 890 / 890 Intake: IV 250 / 250 250 / 250 Heparin/D5W 25,000 U/250 mL 25, 250 / 250 250 / 250 000 unit In 250 ml @ 1,800 UNITS/HR 18 mls/hr IV.CONT TITRATE PRN Rx#:[id number] Oral 640 / 640 Other: Date of Last Bowel Movement 05/04/18 05/05/18 05/05/18 Results Procedures completed during hospitalization: Stress Test - Impressions ITS Impressions Venous Doppler Study 05/04/18 00:00 CONCLUSION: The study is negative for bilateral lower extremity deep venous thrombosis. Myocardial Perfusion Scan Nuc Med 05/05/18 00:00 CONCLUSION: Unremarkable myocardial perfusion scan. Discharge Plan - Discharge Disposition Patient Disposition: 01 Discharge Home - Discharge Condition Condition: Stable - Discharge Order Discharge Orders: Discharge Order (Routine); Ordered 05/06/18 Ordered By: Westley Lind - Discharge Details Anticipated Discharge Date: 05/06/18 - Physicians Team Primary Care Provider: UNKNOWN, Attending Provider: Westley Lind Other Providers: Deepak Montes MD ; Samira Chilel ; Musa Roper MD - Rxs /Orders / Referrals /Forms Prescriptions: New furosemide [Lasix] 20 mg Tablet 20 mg PO DAILY PRN (Reason: Fluid Retention) Qty: 15 RF: 0 prednisone 20 mg Tablet 20 mg PO DIRECTED Qty: 7 RF: 0 Continue alprazolam [Xanax] 1 mg Tablet 1 mg PO BID PRN (Reason: Anxiety) baclofen 10 mg Tablet 10 mg PO TID diclofenac sodium [Voltaren] 1 % Gel 2 g TOPICAL QID epinephrine [EpiPen] 0.3 mg/0.3 mL Auto-Injector 0.3 mg IM Q15M PRN (Reason: Anaphylaxis) famotidine 20 mg Tablet 20 mg PO BID fluticasone-salmeterol [Advair HFA] 115-21 mcg/actuation Hfa Aerosol Inhaler 2 puff INHALATION BID gabapentin 300 mg Capsule 300 mg PO TID hydroxychloroquine [Plaquenil] 200 mg Tablet 200 mg PO BID levalbuterol HCl [Xopenex] 1.25 mg/3 mL Solution For Nebulization 1.25 mg INHALATION Q4-6H PRN (Reason: Shortness Of Breath) oxycodone 10 mg Tablet 10 mg PO Q4-6H PRN (Reason: Pain) pantoprazole 40 mg Tablet,Delayed Release (Dr/Ec) 40 mg PO DAILY prednisone 5 mg Tablet 5 mg PO DAILY PRN (Reason: flair up of RA) rivaroxaban [Xarelto] 10 mg Tablet 10 mg PO DAILY sertraline 50 mg Tablet 50 mg PO DAILY Referrals: UNKNOWN, [Primary Care Provider] - See Instructions
== END 2018-05-06 13:17 | disposition home or self-care (01) ==
LOC: NEDDLT 05-03 00:28 → N05 05-03 00:38
PROVIDERS: ADMIT Hospitalist; ATTEND Hospitalist